=== PATIENT | male | born 1985 | race African-American/Black ===

== ENCOUNTER 2019-04-30 12:28 | Inpatient (IN) | payer OTHER ==
[~2019-04-30] VITALS: Ht 182.9 cm; Wt 60.8 kg
[2019-04-30] VITALS (11 sets, daily range): BP systolic 89–149; BP diastolic 46–92
[2019-04-30] MEDS ORDERED: BACLOFEN 10MG T10 MG PO (12:43)
[2019-04-30] MEDS ORDERED: NEURONTIN600 MG PO (12:44)
[2019-04-30] MEDS ORDERED: FERROUS SULFAT325 MG PO (12:44)
[2019-04-30] MEDS ORDERED: CENTRUM SILVER1 EAC4 PO (12:45)
[2019-04-30] MEDS ORDERED: ZOLOFT50 MG PO (12:45)
[2019-04-30] MEDS ORDERED: VITAMINC500 PO (12:46)
[2019-04-30] MEDS ORDERED: NORCO 5-325 TA1 EAC1 PO (12:47)
[2019-04-30 12:49] LABS: AMP/METHAMP Negative (Negative); BARBITURATES Negative (Negative); BENZODIAZEPINES Negative (Negative); COCAINE POSITIVE (Negative); METHADONE Negative (Negative); OPIATES POSITIVE (Negative); PCP POSITIVE (Negative)
[2019-04-30 13:04] LABS: HEMATOCRIT 39.3 % (42.0-52.0); HEMOGLOBIN 12.8 gm/dL (14.0-18.0); MCH 27.1 pg (26.0-34.0); MCHC 32.7 g/dL (28.0-37.0); MCV 83.1 fL (80.0-100.0); PLATELET COUNT 553 thou/uL (150-400); RBC 4.73 mil/uL (4.50-6.00); RDW 15.5 % (10.5-14.5); WBC 20.6 thou/uL (4.0-11.0)
[2019-04-30 13:09] LABS: ANION GAP 10 mmol/L (7-16); BUN 16 mg/dL (7-18); CALCIUM 9.2 mg/dL (8.5-10.1); CHLORIDE 104 mmol/L (98-107); CO2 27 mmol/L (21-32); CREATININE 1.4 mg/dL (0.7-1.3); GLUCOSE 126 mg/dL (74-106); SODIUM 141 mmol/L (136-145)
[2019-04-30 13:14] LABS: ALBUMIN 1.7 g/dL (3.4-5.0); DIRECT BILIRUBIN < 0.1 mg/dL (<0.1-0.3); SGOT 23 U/L (15-37); SGPT 14 U/L (30-65); TOTAL BILIRUBIN 0.2 mg/dL (<0.1-1.0); TOTAL PROTEIN 6.9 g/dL (6.4-8.2)
[2019-04-30 13:21] LABS: ABSOLUTE NEUTROPHILS 16.3 thou/uL (1.4-8.2); PLATELET ESTIMATE INCREASED
[2019-04-30 13:35] LABS: URINE BILIRUBIN NEGATIVE (Negative); URINE BLOOD NEGATIVE (Negative); URINE CLARITY SL CLOUDY; URINE COLOR YELLOW; URINE GLUCOSE-RANDOM* NEGATIVE (Negative); URINE KETONES NEGATIVE (Negative); URINE LEUKOCYTES-REFLEX NEGATIVE (Negative); URINE NITRITE-REFLEX NEGATIVE (Negative); URINE PROTEIN (DIPSTICK) 3+ (Negative); URINE UROBILINOGEN 0.2 E.U./dl (0.2-1.0)
[2019-04-30 13:53] LABS: AMORPHOUS URATES Many /LPF (None Seen); BACTERIA-REFLEX 1-9 Few /HPF (None Seen); CASTS None Seen /LPF (None Seen); SQUAMOUS 0-3 Few /LPF (0-3); URINE RBC 0-2 Rare /HPF (0-2); URINE WBC-REFLEX 0-5 Rare /HPF (0-5)
[2019-04-30] MEDS ORDERED: SEROQUEL 50 MG50 M2 PO (18:44)
[2019-04-30] MEDS ORDERED: COLACE100 MG PO (18:46)
[2019-04-30] MEDS ORDERED: PAIN & FEVER500 MG PO (18:46)
[2019-05-01] VITALS (16 sets, daily range): BP systolic 88–148; BP diastolic 50–100
[2019-05-01 10:13] LABS: ABSOLUTE NEUTROPHILS 6.7 thou/uL (1.4-8.2); BASOPHILS 3.1 % (0.0-2.0); EOSINOPHILS 4.1 % (0.0-3.0); HEMATOCRIT 39.3 % (42.0-52.0); HEMOGLOBIN 12.3 gm/dL (14.0-18.0); LYMPHOCYTES 25.8 % (24.0-44.0); MCH 26.5 pg (26.0-34.0); MCHC 31.4 g/dL (28.0-37.0); MCV 84.4 fL (80.0-100.0); PLATELET COUNT 513 thou/uL (150-400); RBC 4.65 mil/uL (4.50-6.00); RDW 15.8 % (10.5-14.5); WBC 11.5 thou/uL (4.0-11.0)
[2019-05-01 10:17] LABS: CALCIUM 8.5 mg/dL (8.5-10.1); POTASSIUM 3.8 mmol/L (3.5-5.1)
== END 2019-05-01 16:00 | DRG 917 ==
LOC: ER 12:28 → EROBS 15:00 → ICU 15:44
PROVIDERS: Emergency Medicine; Hospitalist; ADMIT Internal Medicine
DX: T40.5X1A Poisoning by cocaine, accidental (unintentional), initial encounter (principal); G92 Toxic encephalopathy; E43 Unspecified severe protein-calorie malnutrition; G82.20 Paraplegia, unspecified; Z68.1 Body mass index [BMI] 19.9 or less, adult; N18.9 Chronic kidney disease, unspecified; D72.829 Elevated white blood cell count, unspecified; L89.159 Pressure ulcer of sacral region, unspecified stage; T40.7X1A Poisoning by cannabis (derivatives), accidental (unintentional), initial encounter; Z88.6 Allergy status to analgesic agent; Z91.013 Allergy to seafood; Z91.19 Patient's noncompliance with other medical treatment and regimen; Y92.89 Other specified places as the place of occurrence of the external cause
CPT/HCPCS: 10078

== ENCOUNTER 2019-12-02 20:45 | Inpatient (IN) | payer OTHER ==
[~2019-12-02] VITALS: Ht 180.3 cm; Wt 68.0 kg
[~2019-12-02 20:45] MED LIST: BACLOFEN 10MG T10 MG PO; CENTRUM SILVER1 EAC4 PO; COLACE100 MG PO; FERROUS SULFAT325 MG PO; NEURONTIN600 MG PO; NORCO 5-325 TA1 EAC1 PO; PAIN & FEVER500 MG PO; SEROQUEL 50 MG50 M2 PO; VITAMINC500 PO; ZOLOFT50 MG PO
[2019-12-02 20:46] VITALS: BP 125/80
[2019-12-02 21:50] LABS: HEMATOCRIT 36.6 % (42.0-52.0); HEMOGLOBIN 11.5 gm/dL (14.0-18.0); MCH 26.4 pg (26.0-34.0); MCHC 31.5 g/dL (28.0-37.0); MCV 83.7 fL (80.0-100.0); PLATELET COUNT 676 thou/uL (150-400); RBC 4.38 mil/uL (4.50-6.00); RDW 16.7 % (10.5-14.5); WBC 28.7 thou/uL (4.0-11.0)
[2019-12-02 22:04] LABS: ALBUMIN 1.3 g/dL (3.4-5.0); ANION GAP 15 mmol/L (7-16); BUN 25 mg/dL (7-18); CALCIUM 8.5 mg/dL (8.5-10.1); CHLORIDE 99 mmol/L (98-107); CO2 20 mmol/L (21-32); CREATININE 1.3 mg/dL (0.7-1.3); DIRECT BILIRUBIN < 0.1 mg/dL (<0.1-0.2); GLUCOSE 99 mg/dL (74-106); POTASSIUM 4.1 mmol/L (3.5-5.1); SGOT 32 U/L (15-37); SGPT 22 U/L (30-65); SODIUM 134 mmol/L (136-145); TOTAL BILIRUBIN 0.3 mg/dL (<0.1-1.0); TOTAL PROTEIN 7.3 g/dL (6.4-8.2)
[2019-12-02 22:41] LABS: URINE BILIRUBIN NEGATIVE (Negative); URINE BLOOD 2+ (Negative); URINE CLARITY CLEAR; URINE COLOR YELLOW; URINE GLUCOSE-RANDOM* NEGATIVE (Negative); URINE KETONES NEGATIVE (Negative); URINE LEUKOCYTES-REFLEX NEGATIVE (Negative); URINE NITRITE-REFLEX NEGATIVE (Negative); URINE PROTEIN (DIPSTICK) 3+ (Negative)
[2019-12-02 22:51] LABS: ABSOLUTE NEUTROPHILS 23.5 thou/uL (1.4-8.2); ANISOCYTOSIS 1+
[2019-12-02 23:01] LABS: SQUAMOUS 0-3 Few /LPF (0-3)
[2019-12-02 23:03] LABS: BACTERIA-REFLEX None Seen /HPF (None Seen); CASTS None Seen /LPF (None Seen); CRYSTALS None Seen /LPF (None Seen); MUCUS 0-3 Light strn/LPF (None Seen); URINE RBC None Seen /HPF (0-2); URINE WBC-REFLEX None Seen /HPF (0-5)
[2019-12-03 01:16] VITALS: BP 119/63
[2019-12-03 01:29] LABS: AMP/METHAMP Negative (Negative); BARBITURATES Negative (Negative); BENZODIAZEPINES Negative (Negative); COCAINE POSITIVE (Negative); METHADONE Negative (Negative); OPIATES Negative (Negative); PCP POSITIVE (Negative)
--- NOTE | 2019-12-03 01:30 | NUR ---
Pt. was admitted to the unit from the emergency room accompanied by staff. He is alert and oriented. Pt. able to transfer himself safely from the wheelchair to the toilet and bed.
[2019-12-03 01:50] VITALS: BP 114/64
--- NOTE | 2019-12-03 02:48 | NUR ---
Pt. admission assessment and history is completed.
--- NOTE | 2019-12-03 06:30 | NUR ---
Pt. c/o severe pain in his right hip and po hydrocodone not holding the pt. pain. Ccalled and spoke to Gabriela SAMANO and she is aware. To put in some orders for additional pain med. (see orders).
[2019-12-03 07:33] VITALS: BP 139/75
[2019-12-03 12:20] VITALS: BP 142/95
[2019-12-03 19:57] VITALS: BP 147/86
--- NOTE | 2019-12-03 20:18 | NUR ---
PT A&OX4, VSS, PAIN IN LOWER EXTREMITIES. PAIN MEDICATION GIVEN. WOUND CARE DONE PER ORDERS. NO SIGNS OF DISTRESS. WILL CONTINUE TO MONITOR.
--- NOTE | 2019-12-04 06:00 | NUR ---
Assumed pt care @191. pt a&ox4. ind in room with a wheelchair. CT of pelivs was done last night. pt c/o of constant pain in his hip that is partially relieved with current pain regiments but complains that his morphine is too stretched out at Q6hr. contact prec for mrsa maintained. dressings to wounds clean, dry and intact. no s/s of acute distress. report off to day shift nurse
[2019-12-04 08:32] VITALS: BP 134/98
[2019-12-04 08:53] LABS: ABSOLUTE NEUTROPHILS 11.1 thou/uL (1.4-8.2); BASOPHILS 1.4 % (0.0-2.0); EOSINOPHILS 3.4 % (0.0-3.0); HEMATOCRIT 31.3 % (42.0-52.0); HEMOGLOBIN 9.6 gm/dL (14.0-18.0); LYMPHOCYTES 20.9 % (24.0-44.0); MCH 25.8 pg (26.0-34.0); MCHC 30.7 g/dL (28.0-37.0); MCV 84.2 fL (80.0-100.0); MONOCYTES 8.4 % (1.0-8.0); POLYS 65.9 % (36.0-66.0); RBC 3.71 mil/uL (4.50-6.00); RDW 16.6 % (10.5-14.5); WBC 16.8 thou/uL (4.0-11.0)
[2019-12-04 08:56] LABS: CALCIUM 7.7 mg/dL (8.5-10.1); CREATININE 1.3 mg/dL (0.7-1.3); MAGNESIUM 2.3 mg/dL (1.8-2.4); POTASSIUM 3.8 mmol/L (3.5-5.1)
[2019-12-04 08:59] LABS: PLATELET COUNT 591 thou/uL (150-400)
--- NOTE | 2019-12-04 09:35 | NUR ---
PT ADMITTED RELATED TO WOUNDS. CM MET WITH PT YESTERDAY. PT INDICATED HE HAD BEEN LIVING IN AN APARTMENT WITH HIS MOTHER AND STEP DAD. PT HAD BEEN HERE AND HAD TOE AMPUTATIONS AND LEFT AMA. PT HAS A WHEELCHAIR FOR HOME USE. PT'S MEDICAID IS NOW ACTIVE. CM SPOKE WITH PT ABOUT ACUTE REHAB OR LTC PLACEMENT OPTIONS UPON DC. CM TO FOLLOW INDICATED.
--- NOTE | 2019-12-04 11:43 | NUR ---
Received awake on bed. Due medications given as prescribed. On room air. Vital signs stable. A+Ox4. On regular diet- tolerating well; no nausea, no vomiting and no abdominal pain noted. With L BKA- stump dressing in place. With leg dressings in place as well. With SL at L hand- intact, flushing well; on IV antibiotics. Maintained on isolation due to MRSA of wound. Assisted in ADLs. Wheelchair bound, helped in transfer. Complained of pain, due PRN pain medications given as prescribed- explained to patient re: time of pain medications and frequency to be given; pt asked if frequency of IV pain meds can be increased- Dr Kerns informed and said to remain current regimen.
[2019-12-04 14:30] VITALS: BP 140/88
--- NOTE | 2019-12-04 19:36 | HC ---
[facility] [address] [place] [address] CONSULTATION Name: ESME DE Room #: 455- ADM IN M.R.#: [id number] Admission: 12/03/19 Attend Phys: Esteban Kerns MD Discharge: Date of : 83 Report #: [id number] THIS REPORT FOR: cc: SHELLY - No family physician/PCP SHELLY - No family physician/PCP Junior Horne MD ~ CC: Esteban BRAVO physician/PCP DATE OF SERVICE: 12/03/2019 INFECTIOUS DISEASE CONSULTATION REASON FOR CONSULTATION: I was asked to evaluate concerning fever, leukocytosis gangrene of his right foot and chronic wounds to his pelvis. HISTORY OF PRESENT ILLNESS: A 34-year-old paraplegic gentleman with polysubstance abuse, who was recently hospitalized and underwent amputation of the first and second toes of his right foot. He has had a previous left BKA. Also, has pressure wounds to both ischium. He left A last week due to compliance issues and not staying in the hospital facility. He returned home and was later kicked out of his mother's house. He has been unable to take care of himself. Presents now for further evaluation. He has had fever and chills. He has had some drainage from his wounds. Denies any nausea, vomiting or diarrhea. There has been no cough or sputum production. ALLERGIES: HYDROMORPHONE, SEAFOOD and SHRIMP. MEDICATIONS: As noted on his MAR, which were reviewed. He left without antibiotics the last time. PAST MEDICAL HISTORY: Polysubstance abuse, paraplegic, coccyx wounds and ischial wounds, left BKA. FAMILY HISTORY: Noncontributory. SOCIAL HISTORY: Does multiple drugs, smokes cigarettes, alcohol use. REVIEW OF SYSTEMS: A 10-point review was negative other than what is described above. PHYSICAL EXAMINATION: VITAL SIGNS: Temperature is 101.3, max today, now afebrile and hemodynamically stable. GENERAL: He was alert and cooperative. EYES: Without scleral icterus. [facility] [address] [place] [address] CONSULTATION Name: ESME DE Room #: [facility] ADM IN M.R.#: [id number] Admission: 12/03/19 Attend Phys: Esteban Kerns MD Discharge: Date of : 83 Report #: [id number] MOUTH: Without mucositis. NECK: Supple. LUNGS: Clear. HEART: Regular, without murmur. ABDOMEN: Soft. EXTREMITIES: Wounds to both ischium with exposed bone evident on the right. Left BKA stump with an unstageable ulceration distally with surrounding erythema. Right foot with gangrene changes distally. There was bullous formation to the dorsum of his foot. There was erythema extending up to his ankle and distal lower leg. There was bloody drainage along the incision line. There was discoloration with erythema and some more purple discoloration to the plantar aspect of his distal foot. Pulses were palpable in the groin. LABORATORY STUDIES: Reviewed. Cultures reviewed. IMPRESSION: A 34-year-old paraplegic with polysubstance abuse. Has sepsis with leukocytosis and gangrene to his right foot. Also, has extensive wounds to both ischium. RECOMMENDATIONS: We will obtain cultures of the wounds. Continue with broad antibiotic coverage. Surgical evaluation for I suspect will need below-knee amputation. Also, check arterial studies. <ELECTRONICALLY SIGNED> By: Junior Horne MD 12/04/19 [id number] Junior Horne MD /nt
[2019-12-04 19:45] VITALS: BP 151/86
--- NOTE | 2019-12-05 02:47 | NUR ---
PT CARE ASSUMED WITH PT IN BED AT 1900.PT IS A/O X4.PT IS ON ROOM AIR.PT AGITATED WHNE IN PAIN.PT C/O OF PAIN AND PAIN MANAGED WITH MORPHINE AND HYDROCODONE.IV ACCESS ON RT SHOULDER.PT HAS LEFT BKA AND PT IS ABLE TO TRANSFER SELF AND DO ADL .WILL CONTINUE TO MONITOR PER POC
[2019-12-05 08:28] VITALS: BP 133/93
--- NOTE | 2019-12-05 10:20 | NUR ---
Received awake on bed. Due medications given as prescribed. On room air. Vital signs stable. A+Ox4. On regular diet- tolerating well; no nausea, no vomiting and no abdominal pain noted. With L BKA- dressing intact; leg dressings intact. With SL at L hand- intact, on IV antibiotics. Maintained on isolation due to MRSA. Complained of pain, due medications given as prescribed. Wheelchair bound, able to transfer from bed to wheelchair, going to the toilet via wheelchair, standby assist. To continue monitoring patient.
[2019-12-05 12:53] LABS: ABSOLUTE NEUTROPHILS 11.5 thou/uL (1.4-8.2); BASOPHILS 0.2 % (0.0-2.0); EOSINOPHILS 4.4 % (0.0-3.0); HEMATOCRIT 32.9 % (42.0-52.0); HEMOGLOBIN 10.2 gm/dL (14.0-18.0); LYMPHOCYTES 17.9 % (24.0-44.0); MCH 26.1 pg (26.0-34.0); MCHC 31.1 g/dL (28.0-37.0); MONOCYTES 8.7 % (1.0-8.0); PLATELET COUNT 653 thou/uL (150-400); POLYS 68.8 % (36.0-66.0); RBC 3.92 mil/uL (4.50-6.00); RDW 16.8 % (10.5-14.5); WBC 16.8 thou/uL (4.0-11.0)
[2019-12-05 13:07] LABS: ALBUMIN 1.3 g/dL (3.4-5.0); CREATININE 1.2 mg/dL (0.7-1.3); POTASSIUM 3.9 mmol/L (3.5-5.1); TOTAL BILIRUBIN 0.1 mg/dL (<0.1-1.0); TOTAL PROTEIN 6.8 g/dL (6.4-8.2)
[2019-12-05 14:05] VITALS: BP 138/99
[2019-12-05 19:33] VITALS: BP 170/99
[2019-12-06 06:07] LABS: ABSOLUTE NEUTROPHILS 8.8 thou/uL (1.4-8.2); BASOPHILS 0.4 % (0.0-2.0); EOSINOPHILS 6.3 % (0.0-3.0); HEMATOCRIT 31.1 % (42.0-52.0); HEMOGLOBIN 9.7 gm/dL (14.0-18.0); LYMPHOCYTES 20.2 % (24.0-44.0); MCH 26.2 pg (26.0-34.0); MCHC 31.1 g/dL (28.0-37.0); MCV 84.3 fL (80.0-100.0); MONOCYTES 9.9 % (1.0-8.0); PLATELET COUNT 628 thou/uL (150-400); POLYS 63.2 % (36.0-66.0); RBC 3.69 mil/uL (4.50-6.00); RDW 16.3 % (10.5-14.5); WBC 13.9 thou/uL (4.0-11.0)
[2019-12-06 06:50] LABS: CALCIUM 8.3 mg/dL (8.5-10.1); MAGNESIUM 2.2 mg/dL (1.8-2.4); PHOSPHORUS 3.7 mg/dL (2.5-4.9); POTASSIUM 4.2 mmol/L (3.5-5.1)
--- NOTE | 2019-12-06 08:33 | NUR ---
progress pt a/o x4 rating pain a 7 to 9 taking morphine and hydrocodone in moderation dressings intact antibiotics administered as ordered pt pleasant and cooperative.
[2019-12-06 09:28] VITALS: BP 137/89
[2019-12-06 16:38] VITALS: BP 135/87
--- NOTE | 2019-12-06 17:29 | NUR ---
A/O, cooperative; complains of pain in wounds, pain medication given and worked; dressing changed; vss, afebrile. lab reviewed. Patient lying in bed, watching TV. will keep monitoring.
[2019-12-06 19:34] VITALS: BP 129/92
[2019-12-07 05:15] VITALS: BP 128/76
[2019-12-07 08:00] VITALS: BP 153/89
[2019-12-07 15:00] VITALS: BP 132/84
--- NOTE | 2019-12-07 16:49 | NUR ---
PT CURRENTLY ON IV ABX AND GETTING WOUND CARE. PT REFUSED PT AND OT DALLIN INDICATED HE IS INDEPENDENT. CM HAD SPOKEN TO PT ABOUT LTAC OR LTC UPON DC. BUT PT MAY NOT QUALIFY. CM TO FOLLOW UP WITH PT AND DETEREMINE ID HE INTENDS TO DC BACK HOME WITH FAMILY OR IS INTERESTED IN ANOTHER LEVEL OF CARE.
[2019-12-07 19:17] VITALS: BP 129/84
--- NOTE | 2019-12-07 19:38 | NUR ---
Assumed pt care this am, wants pain medication on the dot pain level would be in the high range. Wound care and dressing done by the wound care team, nurse and pt himself.Pt is independent when moving from bed to his wheelchair, to the toilet and back. Pt is able to void on his own bladder scan post void was only 86. POC followed, no signs or verbalizatiosn of distress noted. Pt constantly demands attention and would want nurse to spend time talking to him. Explained the situation that he is not the only pt and as much time that can be given to him will be done. Endorsed to the night nurse.
--- NOTE | 2019-12-08 02:31 | NUR ---
ASSUMED CARE OF PT AT 1900HRS. PT IS AOX4 AND LETS NEEDS BE KNOWN. PT IS INDEPENDENT. ABX TREATMENT CONTINUED. PT REPORTED SOME PAIN AND WAS TREATED WITH PRN PAIN MEDS. WOUND DRESSING CHANGED. PT WAS ABLE TO GET COMFORTABLE AND SLEEP PART OF THE SHIFT. VSS AND NO S/S OF ACUTE DISTRESS. WILL CONTINUE TO MONITOR.
[2019-12-08 08:29] VITALS: BP 147/85
--- NOTE | 2019-12-08 10:52 | NUR ---
Received awake on bed. Due medications given as prescribed. On room air. Vital signs stable. On regular diet- tolerating well; no nausea, no vomiting and no abdominal pain noted. Able to transfer himself from bed to wheelchair, able to use the toilet- falls bundle in place.With L upper arm SL- intact; on IV antibiotics. With L BKA, with wound on R foot- dressing in place, with wound on R hip- dressing in place; with packing on his buttocks- in place. Pt complained of pain, due PRN pain medication given as prescribed- pt got very upset that pain medication not given on the dot- explain to be pt that everyone is a priority and we are trying our best to see everyone on time; pt was talking to his friend and complaining high level of pain- no visual signs of pain noted on the patient during that time. With friend at bedside. Pt requested to talk to pt advocate- Katarzyna informed, pt informed that phone call was made as well.
--- NOTE | 2019-12-08 15:37 | NUR ---
CM FOLLOWED UP WITH PT THIS AFTERNOON. PT STILL GETTING IV ABX AND WOUND CARE. CM SPOKE WITH PT ABOUT LTAC AT [facility] OF LTC AT A FACILITY UPON DC. PT WAS NONCOMMITTAL. CM FAXED REFERRAL TO [facility] FOR REVIEW. CM TO FOLLOW INIDCATED WITH DC PLANNING.
--- NOTE | 2019-12-08 16:52 | NUR ---
[facility] CAN'T ACCEPT PT THEY DON'T TAKE [place] MEDICAID. CM BROUGHT PT AT [facility] THERE WEREN'T ANY APPROPRIATLY SIZED PANTS FOR CM TO PROVIDE FOR PT. CM TO FOLLOW INDICATED WITH DC PLANNING.
[2019-12-08 19:43] VITALS: BP 145/99
--- NOTE | 2019-12-09 01:40 | NUR ---
PT CARE ASSUMED WITH PT WATCHING TV .PT IS A/O X4.PT APPEAR TO BE A A GOOD MOOD.PT COOPERATIVE WITH NURSE .PT C/O OF PAIN AND PAIN MANAGED WITH MORPHINE.PT CAN TRANSFER SEF TO WHEELCAHIR AND USES RESTROOM INDEPENDENTLY.PT DENIED N/V.PT PAIN CONSTANT AT A LEVEL OF 8.WILL CONTINUE TO MONITOR PER POC
[2019-12-09 07:35] VITALS: BP 153/85
--- NOTE | 2019-12-09 16:09 | NUR ---
Assumed pt care at 7am.Pt in bed very angry related to care given last noc. Pt has numerous c/o since admossion regarding his care.Service recovery provided.Assessment completed.vss.Pt c/o rt hip and back pain rated 7/10. Pain med given as ordered with relief.Dr Lambert here,order noted.Drsg change done to coccyx and rt foot as ordered.Pt up in wc to bathroom independently. Will continue to monitor.
[2019-12-09 20:28] VITALS: BP 136/97
[2019-12-10 08:00] VITALS: BP 136/92
--- NOTE | 2019-12-10 08:13 | NUR ---
progress pt reports increased pain to right hip right leg has 2 plus edema from thigh to ankle dressing to right foot and left stump replaced francisco wrapped a little too tight pt leg appeared less swollen at the ankle after redressed. pain controlled with iv morphine and hydrocodone. tolerating diet adequate intake continue poc.
--- NOTE | 2019-12-10 14:44 | NUR ---
Patient on list with [facility] of not acceptance.
[2019-12-10 15:00] VITALS: BP 140/80
[2019-12-10 20:23] VITALS: BP 146/90
--- NOTE | 2019-12-10 20:43 | NUR ---
PT A&OX4, VSS, PAIN GENERALIZED. WOUND CARE TEAM COMPLETED LOWER EXTREMITY DRESSING CHANGE. PATIENT IN NO DISTRESS. WILL CONTINUE TO MONITOR.
[2019-12-11 07:30] VITALS: BP 131/94
--- NOTE | 2019-12-11 13:10 | NUR ---
progress pt a/o x4 up ad ludivina wound care to right hip and right foot and left stump completed wound beds pink/red with granulation tissue noted no odor detected dressing with just scant bloody drainage. taking morphine and hydrocodone for pain with effect. iv antibiotics continue. pt pleasant and cooperative this shift , in am pt reported a new sharp pain to inner aspect of right leg as opposed to pain he had been having at right hip wound site. Dr. Amanda notified of increased swelling and pain ordered a onetime dose of lovenox and a us doppler results to be called to when posted. continue to monitor.
[2019-12-11 14:47] VITALS: BP 140/96
[2019-12-11 15:00] VITALS: BP 130/89
--- NOTE | 2019-12-11 16:56 | NUR ---
[facility] NOT ABLE TO ACCEPT PT. CM HAD PROVIDED PT WITH LIST OF LTC FACILITIES TO REVIEW. WAITING FOR PT TO DETERMINE WHERE HE WOULD LIKE REFERRALS SENT TO REVIEW.
[2019-12-11 19:28] VITALS: BP 142/84
--- NOTE | 2019-12-11 19:57 | NUR ---
Received awake on bed. Due medications given as prescribed, able to swallow meds w/o diffculty. On room air. Vital signs stable. On regular diet tolerating well; no nausea, no vomiting and no abdominal pain noted- encouraged to take supplements. Able to have a bowel movement today. With SL at L hand- on IV pain meds and IV antibiotics. Pt's wound dressing changed as per previous shift nurse, no documentation noted. Dressing C/D/I. Assisted in ADLs, paraplegic but able to transfer from wheelchair to bed and able to use the toilet. Complained of painm due PRN pain medications given as prescribed. Still a/w discharge destination/plans/placement. With order to have Enoxaparin 60mg, as per pharmacy we do not have such dosage, Dr Amanda informed and said to modify order to 80mg, one time dose given as prescribed. With ultrasound for Lower extremities ordered- done at bedside, pt tolerated procedure well. Pt cooperative with care and pleasant today. To continue monitoring pt.
--- NOTE | 2019-12-12 03:48 | NUR ---
PT IS A/O X4.PT IS SELF TRANSFER TO W/C AND IN BATHROOM.PT C/O OF PAIN WITH LITTLE OR NO PAIN RELIEF WITH PAIN MEDICATIONS.PT WENT OUT FOR A 10MINUTES STROLL ACCOMPANIED BY TEST BAKER WITH SECURITY NOTIFIED.IV ACCESS ON LH SL AND HAS CEFTIAZONE ANTIBIOTIC.WILL CONTINUE TO MONITOR POC TILL EOS
[2019-12-12 08:45] VITALS: BP 134/97
--- NOTE | 2019-12-12 11:30 | NUR ---
Received awake on bed. Due medications given as prescribed, able to swallow meds w/o difficulty. On room air. Vital signs stable. On regular diet- tolerating well; no nausea, no vomiting and no abdominal pain, compliant with supplements. With SL at L hand- on IV antibiotics. Able to transfer self from wheelchair to bed; able to use the bathroom. Assisted in ADLs. With dressing on his L stump, R leg, left and right buttocks, sacrum and R hip- dressing C/D/I- pt helps with dressing changes. Falls bundle in place. Pt requested to go out of the unit- informed patient that we need to obtain a doctor's order for it, pt says that a male physician went to his room for 2 days already and prescribing that he can go out for fresh air, explained to patient that I have to verify it with current hospitalist prior to allowing him. Pt went out of the unit while I was giving meds to one of my patients; called security and warehouse pricing and inventory clerk re: incident. Pt brought back by security to his room. Complained of pain, due PRN pain meds given as presribed. To continue monitoring patient.
[2019-12-12 15:41] VITALS: BP 144/79
[2019-12-12 19:22] VITALS: BP 152/97
--- NOTE | 2019-12-13 03:12 | NUR ---
RECEIVED PT SCREAMING IN HIS ROOM CURSING. RECEIVED REPORT FROM DAY RN THAT PT HAS BEEN VERY BELIGERANT ALL DAY WANTING TO GO OUTSIDE. PER PT, CLEARED HIM TO GO OUTSIDE WITH A HOOKER ON IN AFTERNOON, ALTHOUGH THE DAY RN CHECKED WITH AND SHE NEVER SAID THAT TO PT. TRIED TO EXPLAIN TO PT THAT THERE IS NO PHYSICIAN ORDER FOR HIM TO LEAVE THE UNIT EVEN WITH THE HOOKER ON. APPARENTLY THIS ISSUE HAS BEEN GOING ON FOR SOMETIME. WHEN I TRIED TO SPEAK TO PT, PT STARTED SCREAMING AND CURSING AT ME SAYING THAT HE DOES NOT UNDERSTAND WHY THERE'S INCONSISTENCY ON HIM LEAVING THE UNIT. TRIED TO EXPLAIN TO PT THAT THERE'S NO PHYSICIAN NOTE OR ORDER FOR HIM TO LEAVE THE UNIT. OFFERED TO REFER PT TO PT'S ADVOCATE AND RISK MANAGEMENT, PT DECLINED.
[2019-12-13 05:18] LABS: ABSOLUTE NEUTROPHILS 10.8 thou/uL (1.4-8.2); BASOPHILS 1.4 % (0.0-2.0); EOSINOPHILS 4.9 % (0.0-3.0); HEMATOCRIT 29.7 % (42.0-52.0); HEMOGLOBIN 9.3 gm/dL (14.0-18.0); LYMPHOCYTES 22.1 % (24.0-44.0); MCH 26.3 pg (26.0-34.0); MCHC 31.4 g/dL (28.0-37.0); MCV 83.8 fL (80.0-100.0); MONOCYTES 9.6 % (1.0-8.0); PLATELET COUNT 728 thou/uL (150-400); RBC 3.55 mil/uL (4.50-6.00); RDW 15.8 % (10.5-14.5); WBC 17.4 thou/uL (4.0-11.0)
[2019-12-13 05:54] LABS: CALCIUM 8.7 mg/dL (8.5-10.1); CREATININE 1.1 mg/dL (0.7-1.3); MAGNESIUM 1.9 mg/dL (1.8-2.4); PHOSPHORUS 4.9 mg/dL (2.5-4.9); POTASSIUM 4.1 mmol/L (3.5-5.1)
[2019-12-13 15:00] VITALS: BP 144/88
[2019-12-13 19:22] VITALS: BP 137/83
--- NOTE | 2019-12-14 02:38 | NUR ---
PT CARE ASSUMED AT 1900 WITH PT IN HIS W/C WATCHING TV.PT IS A/O X4.PT IS PARAPLEGIA AND ON W/C BUT ABLE TO TRANSFER SELF INDEPENDENTLY AND DO ACTIVITY OF DAILY LIVING INDEPENDENTLY.PT WANTED TO GO OUTSIDE FOR FRESH AIR BUT STAFF UNAVAILABLE TO TAKE HIM OUT.PT PAIN MANAGEMENT WITH HYDROCODONE AND MORPHINE.WOUND DRESSINGS I/D/C.WILL CONTINUE TO MONITOR PER POC
[2019-12-14 07:40] VITALS: BP 134/88
--- NOTE | 2019-12-14 07:54 | P ---
[facility] [place] [address] [address] [address] PROCEDURE REPORT Name: ESME DE Room #: 455-P ADM IN M.R.#: [id number] Admission: 12/03/19 Attend Phys: Esteban Kerns MD Discharge: Date of : 83 Report #: [id number] THIS REPORT FOR: cc: SHELLY - Brianna family physician/PCP SHELLY - No family physician/PCP Luis Diana MD ~ CC: Esteban BRAVO physician/PCP DATE OF SERVICE: 12/10/2019 DEBRIDEMENT INDICATIONS: The patient is a 34-year-old male patient with a previous left below-knee amputation with cold injury and some necrosis to the distal portion of his BKA stump. He has developed increasing thick black eschar only partially covering the distal stump. Therefore, a full thickness surgical sharp debridement was performed to remove this eschar. PREPROCEDURE DIAGNOSIS: Cold injury with tissue necrosis to the left below-knee amputation stump. POSTPROCEDURE DIAGNOSIS: Cold injury with tissue necrosis to the left below-knee amputation stump. PROCEDURE PERFORMED: Sharp full-thickness excisional surgical debridement of left below-knee amputation stump. DESCRIPTION OF PROCEDURE: After obtaining verbal consent from the patient, a time-out was taken. Proper patient, site, side, and procedure were verified. The area was then prepped and draped in the usual sterile fashion. No anesthesia was required. The patient has paraplegia and minimal sensation. A #10 bladed scalpel and tissue forceps were utilized to excise skin, eschar, necrotic and subcutaneous tissue down to a clean bleeding base. ESTIMATED BLOOD LOSS: 3 mL. PAIN: 0 on a scale of 1-10 during and after the procedure. MEASUREMENTS: Preprocedure measurements were 5.2 x 3.4 x 0.1 cm. Postprocedure measurements were 6.5 x 4.4 x 0.3 cm. [facility] [address] [place] [address] PROCEDURE REPORT Name: ESME DE Room #: 455-P [facility] IN .R.#: [id number] Admission: 12/03/19 Attend Phys: Esteban Kerns MD Discharge: Date of : 83 Report #: [id number] The patient tolerated the procedure well. <ELECTRONICALLY SIGNED> By: Luis Diana MD 12/14/19 [id number] Luis Diana MD /nt
--- NOTE | 2019-12-14 13:42 | NUR ---
Nutrition followup: treatment continues to pt with multiple stage IV wounds, hx paraplegia. Eating 80-100% all meals consistently and will drink at least 1 oral supplement per day. No new wt. Discharge planning continues for placement. change nutrition risk to low risk.
--- NOTE | 2019-12-14 16:50 | NUR ---
CM SPOKE WITH PT ABOUT ACUTE REHAB REFERRALS TO BE SENT TO [facility] FOR [facility]VIEW. CM TO FOLLOW INIDCATED WITH DC PLANNING.
--- NOTE | 2019-12-14 17:06 | NUR ---
DISCHARGE PLANNING. PATIENT REFERRALS FAXED TO [facility]. AWAITING RESPONSE.
[2019-12-14 20:08] VITALS: BP 134/92
--- NOTE | 2019-12-14 20:57 | NUR ---
PATIENT UP AD ALKA TO WHEELCHAIR. PAIN MEDS ADMINISTERED, PATIENT REPORTS MINIMAL RELIEF. PROVIDER NOTIFIED, NEW ORDERS RECEIVED. MEDICATION ADMINISTERED TO PATIENT, PATIENT REPORTS MORE RELIEF FROM PAIN. PATIENT BECAME HOSTILE WITH STAFF, YELLING AND CUSSING WHEN PAIN MEDICATION WAS BEHIND, SECURITY AND [employer] BUSINESS ANALYST CALLED. PATIENT WAS ABLE TO CALM DOWN IN ROOM, ABLE TO ADMINISTER MEDICATION. PATIENT WAS ABLE TO REST IN ROOM, REPORTED RELIEF FROM PAIN ON REASSESSMENT.
--- NOTE | 2019-12-15 02:01 | NUR ---
PT CARE ASSUMED WITH PT SITTING AT THE NURSING STATION CONVERSING WITH STAFFS.PT WAS PLEASANT.PT IS A/O X4 .PT IS W/C BOUND AND DO TRANSFER ALONE.PT IS AWAITING PLACEMENT.PT PAIN MANAGEMENT WITH HYDROCODONE AND MORPHINE.PT HAVE ATIVAN PRN FOR ANXIETY.WILL CONTINUE TO MONITOR TILL END OF SHIFT
[2019-12-15 07:00] VITALS: BP 148/92
[2019-12-15 07:33] LABS: ABSOLUTE NEUTROPHILS 10.1 thou/uL (1.4-8.2); BASOPHILS 1.3 % (0.0-2.0); EOSINOPHILS 5.1 % (0.0-3.0); HEMATOCRIT 30.4 % (42.0-52.0); HEMOGLOBIN 9.6 gm/dL (14.0-18.0); LYMPHOCYTES 21.5 % (24.0-44.0); MCH 26.4 pg (26.0-34.0); MCHC 31.7 g/dL (28.0-37.0); MCV 83.5 fL (80.0-100.0); MONOCYTES 8.9 % (1.0-8.0); PLATELET COUNT 677 thou/uL (150-400); POLYS 63.2 % (36.0-66.0); RBC 3.64 mil/uL (4.50-6.00); RDW 16.4 % (10.5-14.5); WBC 16.1 thou/uL (4.0-11.0)
[2019-12-15 07:50] LABS: ALBUMIN 1.6 g/dL (3.4-5.0); ANION GAP 8 mmol/L (7-16); BUN 15 mg/dL (7-18); CALCIUM 8.8 mg/dL (8.5-10.1); CHLORIDE 102 mmol/L (98-107); CO2 27 mmol/L (21-32); GLUCOSE 116 mg/dL (74-106); SGOT 34 U/L (15-37); SGPT 23 U/L (30-65); SODIUM 137 mmol/L (136-145); TOTAL BILIRUBIN < 0.1 mg/dL (<0.1-1.0); TOTAL PROTEIN 7.2 g/dL (6.4-8.2)
[2019-12-15] MEDS ORDERED: LORAZEPAM 1 MG T1 MG PO (11:59)
[2019-12-15] MEDS ORDERED: NORCO 10-325 T1 EACH PO (11:59)
[2019-12-15] MEDS ORDERED: AUGMENTIN 875-1 EACH PO (12:56)
[2019-12-15 14:35] VITALS: BP 148/92
[2019-12-15 14:40] VITALS: BP 148/92
[2019-12-15 14:58] VITALS: BP 148/92
--- NOTE | 2019-12-15 16:40 | NUR ---
[facility] BOTH DENIED ADMISSION. CARE TEAM INDICATED THAT PT WOULD BE CHANGED TO PO ABX AND WOULD BE DISCHARGED HOME WITH OUTPATIENT WOUND CARE. PT WAS NOTIFIED BY CARE TEAM. PT WAS PROVIDED INFO TO FOLLOW UP WITH [facility] SAT AND/OR SATURDAY MORNINGS. WAS GIVEN ADDRESS AND PHONE NUMBER. PT WAS PROVIDED [facility] PACKET FOR FOLLOW UP CARES UPON DC. PT TO DISCHARGE HOME WITH IS MOTHER AND STEP FATHER. PT'S FAMILY TO PROVIDE TRANSPORT HOME THIS DAY. NO OTHER CM INTERVENTION INDICATED. CASE CLOSED.
--- NOTE | 2019-12-15 18:24 | NUR ---
Asked to meet with patient and did speak with patient sister and grandmother in patients room over the phone. Patient agreed to go to LTC and referrals will be sent in am of 12-16-2019. LTAC referrals had been sent and none were able to take patient at this time. Spoke with patient for over an hour, patient expressed frustrations of current condition and on-going care needs. Notified MD that patient will stay as LTC placement can be secured. Patient verbalized an understanding of above and thanked me for "listening" and my time. Will continue with POC to move LTC.
[2019-12-15 19:53] VITALS: BP 134/85
--- NOTE | 2019-12-15 19:57 | NUR ---
PATIENT ALERT AND ORIENTED AND INVOLVED IN HIS OWN CARE INCLUDING ASSISTING WITH COMPLETING AND DIRECTING HIS DRESSING CHANGES. PATIENT EXPRESS AT LENGTH TO MULTIPLE STAFF HIS DIS-SATISFACTION WITH HIS CARE. ATTEMPT TO ADDRESS HIS CONCERNS BY INVOLVING PRIMARY MD AND CASE MANAGEMENT. PATIENT CONCERNS ARE PRIMARILY WITH PAIN MANAGMENT AND HIS PERCEPTION OF LACK OF CONCERN FROM SOME STAFF MEMBERS. PATIENT WAS DISCHARGED ORDER WAS PLACED BUT DID NOT LEAVE DUE TO NO RIDE HOME. PATIENT AND FAMILY MEMBERS INDICATED THEY WANTED PATIENT TO CONTINUE TO GET CARE AT ANOTHER EXTENDED CARE FACILITY. DIR. CASE MANAGEMENT SPOKE AT LENGTH WITH PATIENT AND ATTEMPT TO PLACE PATIENT AT [facility] [address] IN [place]. PATIENT WAS TOLD HE NEEDS TO STAY ON THE NURSING UNIT AND NOT LEAVE THE BUILDING. PATIENT'S BROTHER WAS IN PATIENT'S ROOM FOR SEVERAL HOURS DURING THE MIDDLE OF THE DAY. THIS PATIENT IS WELL KNOWN TO THE STAFF, SECURITY AND ADMINISTRATION FOR HAVING DISAGREEMENTS WITH STAFF, USING FOUL LANGUAGE.
--- NOTE | 2019-12-16 07:23 | NUR ---
PROGRESS PT A/O X4 UP AD ALKA TRANSFERS TO CHAIR INDEPENDENTLY. STILL RATING PAIN TO RIGHT HIP AN 8 TO 10 TAKING HYDROCODONE AND OXYCODONE IR. WAS SUPPOSED TO BE DISCHARGED BUT NO WHERE TO GO. CASE MANAGEMENT TO ARRANGE FOR SNF TODAY.
[2019-12-16 08:35] VITALS: BP 184/94
--- NOTE | 2019-12-16 11:46 | NUR ---
PT ALERT AND ORIENTED TIMES FOUR WITH SOMEWHAT BLUNTED AFFECT THIS MORNING. BP ELEVATED AWARE. OTHER VSS. PT C/O PAIN PRN MEDICATIONS GIVEN WITH SOME RELEIF. DRESSINGS CHANGED THIS MORNING. PT TOLERATES MEDS AND MEALS. PT UP TO WC ON HIS OWN. PT FRIEND AT BEDSIDE. WILL CONTINUE TO MONITOR.
--- NOTE | 2019-12-16 12:49 | NUR ---
Had on-site liaison from [facility] here and we met with patient. [facility] was looking to take the patient and discussed with physician's and SW. [place]fill at 11:15 today that patient refused to provide his Medicaid check to pay for his stay and therefore he told the attending and nurse he was leaving. Went to speak with patient with Risk Management with intention to discuss and notify family and patient has left the hospital and has been discharged. Notified SW on case.
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
--- NOTE | 2019-12-18 16:55 | P ---
[facility] [place] [address] [address] [place] [address] PROCEDURE REPORT Name: ESME DE Room #: 455-P [facility] IN M.R.#: [id number] Admission: 12/03/19 Attend Phys: Esteban Kerns MD Discharge: 12/16/19 Date of : 83 Report #: [id number] THIS REPORT FOR: cc: SHELLY - No family physician/PCP SHELLY - No family physician/PCP Reid Hidalgo MD ~ CC: Esteban BRAVO physician/PCP DATE OF SERVICE: 12/04/2019 WOUND CARE PROCEDURE NOTE PERSONAL PHYSICIAN: Dr. Kerns. CHIEF COMPLAINT: Right hip wound with abscess. HISTORY OF PRESENT ILLNESS: This is a 34-year-old black male we have been following for multiple decubitus ulcers, which are chronic; however, in the past week, the patient noticed he had increased pain and what appeared to be a new decubitus ulcer over his right lateral hip. CT scan confirmed inflammatory process, which required incision and drainage. PREPROCEDURE DIAGNOSES: 1. Infected right hip decubitus ulcer. 2. Paraplegia. 3. Protein-calorie malnutrition -- severe. POSTPROCEDURE DIAGNOSES: 1. Infected right hip decubitus ulcer. 2. Paraplegia. 3. Protein-calorie malnutrition -- severe. DESCRIPTION OF PROCEDURE: After timeout was taken, verbal consent was obtained. The patient had excisional debridement down to and including subcutaneous tissue with removal of viable and nonviable tissue. A scalpel and forceps were used for the debridement. The patient was anesthetized with 1% lidocaine with epinephrine prior to the debridement. Bleeding was minimal, easily controlled with pressure. Post-debridement measurements were 2 x 3 x 2 cm. The patient tolerated the procedure well. After the debridement, the patient had Dakin's moist gauze packed within the ulceration. Deep wound culture was obtained prior [facility] [address] [place] [address] PROCEDURE REPORT Name: ESME DE Room #: 455-P [facility] IN ..#: [id number] Admission: 12/03/19 Attend Phys: Esteban Kerns MD Discharge: 12/16/19 Date of : 83 Report #: [id number] to placement of the Dakin solution. Total excisional debridement of subcutaneous tissue was less than 20 square cm. <ELECTRONICALLY SIGNED> By: Reid Hidalgo MD 12/18/19 1655 [id number] Reid Hidalgo MD /nt
--- NOTE | 2019-12-24 14:29 | HC ---
[facility] [place] [address] [address] [place] [address] CONSULTATION Name: ESME DE Room #: 455-P [facility] IN M.R.#: [id number] Admission: 12/03/19 Attend Phys: Esteban Kerns MD Discharge: 12/16/19 Date of : 83 Report #: [id number] THIS REPORT FOR: cc: SHELLY Reed family physician/PCP SHELLY - Brianna family physician/PCP Monse Montez MD ~ CC: Esteban BRAVO physician/PCP DATE OF SERVICE: 12/03/2019 REASON FOR CONSULTATION: Right foot necrosis. HISTORY OF PRESENT ILLNESS: The patient is a 34-year-old paraplegic male who was admitted for sepsis secondary to decubitus ulcer. He reports he most recently on 11/16/2019 underwent right first and second toe amputations. He reports was doing well. He also, approximately 2 years ago, underwent a left below-knee amputation. He reports the wounds were doing fairly well. He noted he was outside all day on Saturday, the day of the parade, and then noticed some discoloration of the wounds with some drainage from the stump wound. He reports noting blistering as well. PAST MEDICAL HISTORY: Significant for paraplegic, hypokalemia, decubitus ulcer, history of polysubstance abuse. PAST SURGICAL HISTORY: Status post left below-knee amputation and status post right first and second toe amputation. ALLERGIES: SHRIMP, HYDROMORPHONE. SOCIAL HISTORY: Current every day smoker, uses marijuana. Reports he is independent, drinks alcohol weekly. REVIEW OF SYSTEMS: INTEGUMENTARY: Reports decubitus ulcer. MUSCULOSKELETAL: Denies other issues. LABORATORY STUDIES: Done on 12/02/2019 show white blood cell count 28.7, hemoglobin 11.5, hematocrit 36.6, platelet count 676. Chemistry shows a low sodium of 134. PHYSICAL EXAMINATION: GENERAL: He is alert and oriented, interacts appropriately. He is well-developed, well-nourished male who interacts appropriately. He is extremely friendly. VITAL SIGNS: Most recent vital signs show temperature of 36.[address] [facility] [address] [place] [address] CONSULTATION Name: ESME DE Room #: 455-P [facility] IN M.R.#: [id number] Admission: 12/03/19 Attend Phys: Esteban Kerns MD Discharge: 12/16/19 Date of : 83 Report #: [id number] centigrade, heart rate is 90, respiratory rate 18, blood pressure 142/95, pulse oximetry is 100% on room air. EXTREMITIES: Examination of his right lower extremity shows a prior surgical wound with some dark discoloration along the dorsum of the foot as well as the suture line. There is some blistering. This appears to be more consistent with an early frostbite injury. There is no drainage from the foot. Left stump wound shows a dark discoloration at the tip with some serous drainage. This may potentially be consistent with frostbite injury. RADIOGRAPHS: AP, lateral and oblique of the right foot show postoperative changes. No new osteolysis. IMPRESSION AND PLAN: 1. Postoperative right toe amputations. He may have a mild cellulitis. This may also be a frostbite type injury due to him being outside all day on Saturday in the extreme cold. We will see how he does on the antibiotics and wound care as well as Infectious Disease. 2. Status post left below-knee amputation with some drainage. Also, we will await and see how he does with antibiotics and wound care. Thank you very much for allowing me to participate in care of this patient. I will continue to follow this patient. <ELECTRONICALLY SIGNED> By: Monse Montez MD 12/24/19 1429 [id number] Monse Montez MD /nt
== END 2019-12-16 12:23 | disposition home or self-care (01) | DRG 853 ==
LOC: ER 20:45 → 4W 12-03 00:03 → EROBS 12-03 00:03 → 4W 12-03 01:18
PROVIDERS: Emergency Medicine; Internal Medicine; Nurse Practitioner; Specialist; ADMIT Hospitalist
PROC: 0J9L0ZZ Drainage of Right Upper Leg Subcutaneous Tissue and Fascia, Open Approach (ICD-10-PCS; principal; 2019-12-04)
PROC: 0JBP0ZZ Excision of Left Lower Leg Subcutaneous Tissue and Fascia, Open Approach (ICD-10-PCS; 2019-12-10)
DX: A41.9 Sepsis, unspecified organism (principal); L89.224 Pressure ulcer of left hip, stage 4; L89.214 Pressure ulcer of right hip, stage 4; L89.154 Pressure ulcer of sacral region, stage 4; E43 Unspecified severe protein-calorie malnutrition; G82.20 Paraplegia, unspecified; M86.8X8 Other osteomyelitis, other site; I96 Gangrene, not elsewhere classified; F17.210 Nicotine dependence, cigarettes, uncomplicated; F12.90 Cannabis use, unspecified, uncomplicated; T87.54 Necrosis of amputation stump, left lower extremity; Y83.8 Other surgical procedures as the cause of abnormal reaction of the patient, or of later complication, without mention of misadventure at the time of the procedure; L30.9 Dermatitis, unspecified; D64.9 Anemia, unspecified; Z89.512 Acquired absence of left leg below knee; Z88.8 Allergy status to other drugs, medicaments and biological substances; Z88.6 Allergy status to analgesic agent; Z91.013 Allergy to seafood; Z71.51 Drug abuse counseling and surveillance of drug abuser; Z91.19 Patient's noncompliance with other medical treatment and regimen; X31.XXXA Exposure to excessive natural cold, initial encounter; Y93.89 Activity, other specified; Y92.89 Other specified places as the place of occurrence of the external cause; Y99.8 Other external cause status
CPT/HCPCS: 10040; 10045

== ENCOUNTER 2020-03-16 17:49 | Inpatient (IN) | payer OTHER ==
[~2020-03-16] VITALS: Ht 180.3 cm; Wt 67.8 kg
--- NOTE | ~2020-03-16 | HC ---
[facility] [place] [address] [address] [place] [address] CONSULTATION Name: ESME DE Room #: 434-P ADM IN .R.#: [id number] Admission: 03/16/20 Attend Phys: Neal Carlson MD Discharge: Date of : 83 Report #: [id number] THIS REPORT FOR: cc: SHELLY - Brianna family physician/PCP SHELLY - Brianna family physician/PCP Monse Montez MD ~ CC: [facility] physician/PCP Neal Carlson DATE OF SERVICE: 03/18/2020 ORTHOPEDIC CONSULTATION NOTE CHIEF COMPLAINT AND REASON FOR CONSULTATION: Left below-knee amputation stump necrosis and right possible osteomyelitis, foot. HISTORY OF PRESENT ILLNESS: The patient reports his right foot has never healed and it scabbed over, the same thing with his left stump wound. He had prior right first and second phalanx and partial metatarsal amputations. He complains of significant pain in both of his lower extremities. He has been seen by Wound Care for these as well as ischial and hip decubitus ulcers. PAST MEDICAL HISTORY: Significant for past drug abuse, osteomyelitis, paraplegia, sacral wounds. ALLERGIES: DILAUDID. SOCIAL HISTORY: Smokes about half a pack of cigarettes a day, does not work. Alcohol use is unknown. PAST SURGICAL HISTORY: Prior right first and second toe amputations and left below-knee amputation. LABORATORY STUDIES: Done on 03/17/2020 show white blood cell count 14.5, hemoglobin 9.5, hematocrit 30.6, platelet count 637. ESR was 0. Chemistry is grossly normal except for CRP is elevated at 49.8. Calcium is low at 7.5. PHYSICAL EXAMINATION: GENERAL: The patient is alert and oriented, interacts appropriately. He is well-developed, well-nourished male in no acute distress. He is pleasant with me. Normal mood and affect. He mobilizes himself with a wheelchair. EXTREMITIES: Examination of his bilateral lower extremities, the patient strongly requested that I not remove the dressings and for me to look at the pictures, which I agreed to at this point, although prior to any surgical planning, the dressings would need to be removed. He does have gauze dressings on the left below-knee amputation stump and the right foot. On the right foot, [address] [address] CONSULTATION Name: ESME DE Room #: 434-P ADM IN M.R.#: [id number] Admission: 03/16/20 Attend Phys: Neal Carlson MD Discharge: Date of : 83 Report #: [id number] there is approximately a 2 cm healing wound on the medial aspect of his distal leg. There is no cellulitis. Photos showed multiple eschars on the right foot and left stump wound. The rest of the medical record was reviewed by myself. RADIOGRAPHS: Three views, AP, lateral and oblique of the right foot were reviewed and interpreted by myself as well as the report was reviewed, shows some cortical irregularity on the first and second metatarsals, maybe consistent with osteomyelitis. IMPRESSION AND PLAN: 1. Status post right first and second toe amputations with poor healing wounds and probable osteomyelitis. Would recommend an MRI to be completed today. My on-call partner will see him this weekend. He may require further amputation, would also appreciate Wound Care's input. 2. Left below-knee amputation stump eschar. Again, we will follow this as well. This may require revision. Questions were encouraged and answered to the best of my ability. By: [id number] Monse Montez MD /nt
[~2020-03-16 17:49] MED LIST changes: +AUGMENTIN 875-1 EACH PO; +LORAZEPAM 1 MG T1 MG PO; +NORCO 10-325 T1 EACH PO
[2020-03-16 17:50] VITALS: BP 139/78
--- NOTE | 2020-03-16 18:28 | NUR ---
IV TEAM PAGED FOR LINE AND LAB
[2020-03-16 19:32] LABS: ABSOLUTE NEUTROPHILS 11.4 thou/uL (1.4-8.2); BASOPHILS 0.5 % (0.0-2.0); EOSINOPHILS 1.9 % (0.0-3.0); HEMATOCRIT 32.1 % (42.0-52.0); HEMOGLOBIN 10.2 gm/dL (14.0-18.0); LYMPHOCYTES 12.6 % (24.0-44.0); MCH 24.5 pg (26.0-34.0); MCHC 31.9 g/dL (28.0-37.0); MCV 76.7 fL (80.0-100.0); MONOCYTES 6.1 % (1.0-8.0); PLATELET COUNT 684 thou/uL (150-400); POLYS 78.9 % (36.0-66.0); RBC 4.18 mil/uL (4.50-6.00); WBC 14.5 thou/uL (4.0-11.0)
[2020-03-16 19:36] LABS: CREATININE 1.1 mg/dL (0.7-1.3); POTASSIUM 3.8 mmol/L (3.5-5.1)
[2020-03-16 19:42] LABS: ALBUMIN 1.4 g/dL (3.4-5.0); TOTAL BILIRUBIN 0.1 mg/dL (<0.1-1.0); TOTAL PROTEIN 6.4 g/dL (6.4-8.2)
[2020-03-16 20:15] VITALS: BP 116/55
[2020-03-16 20:38] VITALS: BP 115/58
[2020-03-16 20:50] VITALS: BP 122/61
[2020-03-17 03:00] VITALS: BP 135/70
--- NOTE | 2020-03-17 05:38 | NUR ---
PT WAS ADMITTED TO THE UNIT FROM THE ER IN A STABLE CONDITION.PT C/O PAIN ON HIS BACK AND R SIDE,MANAGED WITH MED.ADMISSION HX,EDUCATION AND ASSESSMENT COMPLETED.PT HAS MULTIPLE WOUNDS TO HIS R FOOT AND SACRUM,PT REFUSED PIC TAKEN,PT STATED THAT HE DOESN'T WANT ANYONE TOUCHING HIS WOUNDS UNTIL HIS PAIN IS UNDER CONTROL.PT IS A PARAPLEGIA,BUT ABLE TO CARE FOR SELF.PT WAS ANGRY,IRRITABLE AND NOT COOPERATIVE WITH CARE ON ADMIT.IVF AND IV ABX ADMINISTERED ORDERED.CALL LIGHT WITHIN REACH.
[2020-03-17 07:59] LABS: HEMATOCRIT 30.6 % (42.0-52.0); HEMOGLOBIN 9.5 gm/dL (14.0-18.0); MCH 24.1 pg (26.0-34.0); MCHC 31.2 g/dL (28.0-37.0); MCV 77.3 fL (80.0-100.0); RBC 3.96 mil/uL (4.50-6.00); RDW 17.4 % (10.5-14.5); WBC 14.5 thou/uL (4.0-11.0)
[2020-03-17 08:10] LABS: CALCIUM 7.5 mg/dL (8.5-10.1); CREATININE 1.1 mg/dL (0.7-1.3); POTASSIUM 4.3 mmol/L (3.5-5.1)
[2020-03-17 08:13] VITALS: BP 127/91
--- NOTE | 2020-03-17 10:12 | NUR ---
chart review. tried calling pt in room, and no answer. cm spoke with bedside nurse, is going to make sure phone is in reach for pt to talk.
--- NOTE | 2020-03-17 14:58 | NUR ---
PT A&OX4. VERY AGGITATED. STATES PAIN AT 10/10 TO BACK AND R LE. REFUSED WOUND PICTURE AND DRSG TO THIS TIME STATES HE JUST WANTS A LITTLE MORE TIME FOR THE MEDS TO KICK IN. PT IS A PARPLEGIC THOUGH ABLE TO GET IN AND OUT OF HIS W/C AND BATH HIMSELF. CALL LIGHT IS W/I REACH.
[2020-03-17 20:00] VITALS: BP 129/82
--- NOTE | 2020-03-18 02:44 | NUR ---
ASSUMED PT CARE AT 1900. PT IS VERY IRRITABLE. THIS RN SPOKE TO DR TRAN WHOM SAID TO MAKE THE PT NPO AT MIDNIGHT, PT WAS UPSET THAT NO ONE HAD COME TO SEE HIM. LEFT STUMP AND RIGHT FOOT DRESSING D/C/I. NO DRESSINGS ON THE SACRAL AND HIP WOUNDS DUE TO PT REFUSING. CALLS [facility] FOR PAIN MEDICATION. SAYS HE IS INDEPENDENT AND CAN GO TO THE BATHROOM W/O ASSISTANCE. VSS. ANTIBIOTICS AND FLUIDS INFUSING PER ORDER. PT TURNS SELF, IS CURRENTLY RESTING IN BED WATCHING TELEVISION.
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
[2020-03-18 08:02] VITALS: BP 136/89
--- NOTE | 2020-03-18 12:14 | NUR ---
ON-GOING ASSESSMENT: CM REVIEWED CHART. PT IS TO HAVE AN MRI. WOUND CARE AND ORTHO ARE FOLLOWING PATIENT. PER WOUND CARE FOR R FOOT PENDING THE MRI RESULTS THEY WOULD RECOMMEND TMA VS BKA AND FOR LEFT STUMP THEY RECOMMEND STUMP REVISION. ORTHO IS FOLLOWING PATIENT AND AWAITING RESULTS OF THE MRI. PT IS SOMEWHAT AGITATED DUE TO NOT BEING ABLE TO SLEEP. PT IS FROM HOME WHERE HE LIVES WITH HIS MOTHER. CM WILL CONTINUE TO FOLLOW TO ASSIST NEEDED. NO PLANS FOR WEEKEND DISCHARGE.
[2020-03-18 16:12] VITALS: BP 136/86
--- NOTE | 2020-03-18 17:09 | NUR ---
PT A&OX4. AGITATED WITH CARES. C/O PAIN WHEN HE WENT FOR MRI TODAY. DEMANDED A ONE TIME PAIN MED, PAIN MED WAS SWITCHED FROM MORPHINE TO FENTYNL THIS MADE PT VERY AGITATED. REFUSED DRSG CHANGES. IV FLUIDS INFUSING W/O COMPS.TRANSFERS SELF TO W/C AND TO BATHROOM, PT IS A PARA. CALL LIGHT W/I REACH.
[2020-03-18 19:39] VITALS: BP 145/89
--- NOTE | 2020-03-19 03:25 | NUR ---
RECIEVED CARE OF THIS PATIENT AT 1900. PATIENT ALERT AND ORIENTED X4. C/O PAIN [id number]. MED GIVEN WITH SOME RELIEF. PATIENT IS A PARA WITH MULTIPLE WOUNDS. HAS A LBKA. PATIENT CAN BE SHORT WITH THE NURSES AND THEN BE NICE CAN BE. IV PATENT IN RAC WITH IV FLUIDS INFUSING. SLEPT OFF AND ON DURING NIGHT.
[2020-03-19 07:10] VITALS: BP 123/87
[2020-03-19 15:25] VITALS: BP 124/87
[2020-03-19 18:56] VITALS: BP 121/71
--- NOTE | 2020-03-19 23:38 | NUR ---
ASSESSED AT START OF SHIFT PT RESTING IN BED. REPORT RECIEVED FROM DAY NURSE. WOUND DRESSING INTACT. COVID RESULT NEGATIVE. DR PIÑA AWARE. ORDERS PLACED TO BE NPO AT MIDNIGHT AND TO HAVE SURGERY @0830 IN THE AM. INFORMED PT ABOUT PLANS. PT CALLS FREQ FOR PAIN MEDS DUE TO PAIN ON THE RIGHT SIDE. MANAGED WITH FENTANYL AND HYDROCODONE. PT PARAPLEGIC AND W/C BY BEDSIDE. CALL LIGHT IN REACH AND WILL CONT WITH POC TILL EOS.
[2020-03-20 07:03] LABS: HEMATOCRIT 28.6 % (42.0-52.0); HEMOGLOBIN 9.1 gm/dL (14.0-18.0); MCH 24.2 pg (26.0-34.0); MCHC 31.8 g/dL (28.0-37.0); MCV 76.3 fL (80.0-100.0); RBC 3.75 mil/uL (4.50-6.00); RDW 16.8 % (10.5-14.5); WBC 11.4 thou/uL (4.0-11.0)
[2020-03-20 07:15] LABS: CALCIUM 8.1 mg/dL (8.5-10.1); POTASSIUM 4.2 mmol/L (3.5-5.1)
[2020-03-20 08:20] VITALS: BP 140/90
[2020-03-20 12:33] VITALS: BP 124/78
--- NOTE | 2020-03-20 16:08 | NUR ---
Assumed care of pt at 0700. Pt a&ox4. Pt had surgical procedure done today. Pt's family called with patient permission, and updated after procedure. Dressing c/d/i. Rt heel floated over pillow. Prn pain meds administered for pain. Call light within reach. Will continue to monitor.
[2020-03-20 20:59] VITALS: BP 127/89
--- NOTE | 2020-03-20 22:11 | NUR ---
PT AOX4. PT REPORTS PAIN 8/10 IN LLE. LLE NOTED TO HAVE 2+ PITTING EDEMA. PT RECEIVING PRN IV FENTANYL Q3HR AND PRN PO NORCO Q4HR. PT REPORTS CONCERN WITH PAIN MANAGEMENT AND SLEEPING. PROVIDED REASSURANCE THAT ALL STAFF ARE HERE TO SUPPORT ACHIEVING [employer] STATUS, PT RECEPTIVE. PT OBSERVED TO HAVE DECREASED IRRITABILITY AND AGITATION WITH THERAPEUTIC COMMUNICATION. PT INDEPENDENT WITH TRANSFERS FROM BED TO WC AND WC TO BED. PT INDEPENDENT WITH FREQUENT REPOSITIONING. PT TOLERATING PO INTAKE OF FLUIDS AND REGULAR DIET. PT ENCOURAGED TO NOTIFY STAFF FOR ALL NEEDS. CALL LIGHT WITHIN REACH, BED IN LOWEST POSITION, BED LOCKED, WC AT BEDSIDE. WILL CONTINUE TO MONITOR.
--- NOTE | 2020-03-21 03:57 | NUR ---
PT LYING IN BED. FENTANYL AND LORTAB PROVIDING PAIN RELIEF. RESTING COMFORTABLY. NO NEEDS VOICED. CALL LIGHT WITHIN REACH. FREQUENT OBSERVATION.
[2020-03-21 05:34] VITALS: BP 124/85
[2020-03-21 08:00] VITALS: BP 121/70
--- NOTE | 2020-03-21 08:42 | O ---
[address] [address] OPERATIVE REPORT Name: ESME DE Room #: 434-P ADM IN M.R.#: [id number] Admission: 03/16/20 Attend Phys: Neal Carlson MD Discharge: Date of : 83 Report #: [id number] THIS REPORT FOR: cc: FAM - No family physician/PCP FAM - No family physician/PCP Dale Julian MD ~ CC: [facility] physician/PCP Neal Carlson DATE OF SERVICE: 03/20/2020 SERVICE: Orthopedics. FACILITY: [facility]. SURGEON: Dale Julian MD SOFTWARE RECRUITER: Ileana Mak NP PREOPERATIVE DIAGNOSES: 1. Paraplegia. 2. Decubitus ulcers. 3. Status post left below-knee amputation. 4. Status post right first and second toe amputations. 5. Osteomyelitis, right forefoot. 6. Nonhealing wound with eschar, left leg. POSTOPERATIVE DIAGNOSES: 1. Paraplegia. 2. Decubitus ulcers. 3. Status post left below-knee amputation. 4. Status post right first and second toe amputations. 5. Osteomyelitis, right forefoot. 6. Nonhealing wound with eschar, left leg. PROCEDURES: 1. Right transmetatarsal foot amputation. 2. Irrigation and debridement, left leg wound, skin and subcutaneous tissue (6 x 7 cm). COMPLICATIONS: None. DRAINS: None. SPECIMENS: Foot for pathology. [address] [address] OPERATIVE REPORT Name: ESME DE Room #: 434-P [facility] IN .R.#: [id number] Admission: 03/16/20 Attend Phys: Neal Carlson MD Discharge: Date of : 83 Report #: [id number] FINDINGS: 1. Healthy granulation tissue with good vascularity of the wound bed on the right foot. 2. Superficial eschar down to the subcutaneous tissue on the left leg was debrided. There was no exposed bone, no evidence of deep infection. HISTORY: The patient is a gentleman who is a paraplegic and has had chronic leg wounds subsequent to that, he had had first and second toe amputations a couple of months ago. There was some difficulty with wound care, compliance and followup. He then presented to the Emergency Room with purulence draining from his toes and a significant wound on the foot and evidence on MRI of osteomyelitis. We had discussion about treatment options. Risks, benefits, alternatives and indications of surgery were discussed with him in detail. Risks include but not limited to pain, bleeding, infection, injury to nerves or blood vessels, incomplete healing, need for further surgery including revision up to and including higher level amputation as well as complications related to anesthesia such as stroke, heart attack, pulmonary complications, thromboembolic disease and . Despite the risks, he gave full informed consent and wished to proceed. PROCEDURE IN DETAIL: Bilateral lower extremities were identified, the surgical extremities. He was then taken to the operating room and general anesthesia was induced without complications, padded appropriately. Prophylactic antibiotics were not administered as he is on antibiotic regimen on the floor. He had tourniquet applied to bilateral lower extremities, though we did not use the tourniquet on the left side. The right side tourniquet time was 25 minutes. Bilateral lower extremities were prepped and draped in standard sterile fashion. Time-out procedure was performed. The leg was elevated and then right leg tourniquet was inflated to 250 mmHg. It was later bumped up to 300 mmHg and the total tourniquet time was 25 minutes. The right foot was actually very unhealthy in appearance, but with him asleep, we were able to peel back an eschar on the dorsum of the forefoot extending to the mid foot, which revealed really overall healthy granulation tissue across the mid foot and so I felt good about the ability to save much of the foot with the transmetatarsal amputation and this was the only thing he was interested in undergoing. He had specifically refused any higher level amputation and understood the risk of insufficient healing; however, the infection was clearly contained to the level of the toes and the distal metatarsals and so proceeded with a fishmouth incision while preserving the dorsal foot granulation tissue and specifically avoiding bringing the incision too far proximal. Dissection was taken down to the metatarsals. These were exposed with subperiosteal dissection and then they were each truncated with the bone cutter and then the sharp edges were debrided with the rongeur. A cascade pattern was created in order to avoid any deep pressure on the soft tissues underneath. We preserved the plantar skin flap, which was bleeding well and well vascularized in order to close the wound and [address] [address] OPERATIVE REPORT Name: ESME DE Room #: 434-P ADM IN M.R.#: [id number] Admission: 03/16/20 Attend Phys: Neal Carlson MD Discharge: Date of : 83 Report #: [id number] then thoroughly irrigated it. Hemostasis was achieved when the tourniquet was let down and then 2 vessels were tied off with 0 silk ties and then the deep layer was closed with 0 PDS suture in avxalr-qu-dicid fashion. The superficial layer was closed with 2-0 PDS sutures, which provided good skin approximation and then the skin was closed with 3-0 nylon with primarily diagonal mattress sutures and then some single interrupted stitches as well to reinforce. At this point, Xeroform and gauze dressing was applied followed by compression wrap with Brenden. The left leg was then carefully evaluated. The eschar on the end of the leg measured 6 x 7 cm and was thick and black in appearance. This was debrided sharply with a knife and scissors exposing the underlying tissue which was granulation tissue with fibrinous exudate over the top. I then used a Pierson elevator to scrape away the fibrinous exudate and fresh bleeding was encountered throughout the whole thing. There was no deep sinus tract and there was no palpable or exposed bone, so this is a very healthy appearing wound bed now. It was irrigated and then Xeroform dressing followed by gauze and a compressive Brenden wrap dressing was applied to the left leg. The patient was then awakened from anesthesia and taken to recovery room in stable condition. There were no complications. All counts were correct. <ELECTRONICALLY SIGNED> By: Dale Julian MD 03/21/20 0842 1215 [id number] Dale Julian MD /nt
--- NOTE | 2020-03-21 18:00 | NUR ---
VERY PLEASANT AND COOPERATIVE. LEFT STUMP DRESSING INTACT AND RIGHT FOOT DRESSING INTACT. GOOD APPETITE FOR MEALS. INDEPENDEN WITH TOILETING AND SELF CARES. PATIETN CHANGED SACRAL DRESSING HIMSELF. LEFT UPPER ARM SALINE LOCK INTACT.
[2020-03-21 19:15] VITALS: BP 123/87
--- NOTE | 2020-03-22 05:09 | NUR ---
RECEIVED CARE OF THIS PATIENT AT 1900. PATIENT ALERT AND ORIENTED X4. C/O PAIN, MED GIVEN WITH SOME RELIEF. UP IN W/C BY SELF TO BATHROOM. KRAIG WRAPS ON OLIVIER LOWER EXTS. SLEPT OFF AND ON DURING NIGHT.
[2020-03-22 08:19] VITALS: BP 129/75
[2020-03-22 17:22] VITALS: BP 136/83
--- NOTE | 2020-03-22 18:37 | NUR ---
VSS-LOW GRADE TEMP OF 99.3. PAIN WELL CONTROLLED WITH IV AND PO PAIN MEDICATIONS. CHANGED BOTH STUMP DRESSINGS PER ORDERS, VERY LITTLE SEROUS DRAINAGE ON REMOVED DRESSINGS. PATIENT CHANGED ISCHIAL AND COCCYX WOUND. OOB TO WHEELCHAIR BY SELF, PARTIAL BATH INDEPENDENTLY, LINEN CHANGE. CALLS APPROPRIATELY FOR ANY NEEDED ASSISTANCE.
[2020-03-22 19:25] VITALS: BP 128/92
--- NOTE | 2020-03-23 02:56 | NUR ---
ASSESSED AT START OF SHIFT PT RESTING IN BED. C/O PAIN MANAGED WITH IV AND PO MEDS. IV INTACT AND ABX INFUISING. WOUND DRESSING IN PLACE. CALL LIGHT IN REACH AND PT TRANSFERS SELF VIA WHEELCHAIR. WILL CONT TO MONITOR.
[2020-03-23 04:18] VITALS: BP 136/89
[2020-03-23 05:55] LABS: HEMATOCRIT 31.6 % (42.0-52.0); HEMOGLOBIN 9.8 gm/dL (14.0-18.0); MCH 24.2 pg (26.0-34.0); MCHC 30.9 g/dL (28.0-37.0); MCV 78.2 fL (80.0-100.0); RBC 4.04 mil/uL (4.50-6.00); RDW 17.3 % (10.5-14.5); WBC 12.2 thou/uL (4.0-11.0)
[2020-03-23 06:02] LABS: CALCIUM 8.3 mg/dL (8.5-10.1); CREATININE 1.1 mg/dL (0.7-1.3); POTASSIUM 4.3 mmol/L (3.5-5.1)
[2020-03-23 08:35] VITALS: BP 120/83
--- NOTE | 2020-03-23 11:49 | NUR ---
PT UNDERWENT PARTIAL FOOT AMUTATION AND IS ON IV ABX AT THIS TIME. CASE TEAM INDICATING THAT PT IS PROGRESSING. POSSIBLE DC TODAY.
--- NOTE | 2020-03-23 14:58 | NUR ---
FAXED REFERRAL TO [facility] SPOKE WITH TRISTAN IN ADM HE RECEIVED REFERRAL AND WILL REVIEW.
--- NOTE | 2020-03-23 15:03 | NUR ---
CM FOLLOWED UP WITH PT THIS DAY CARE TEAM INDICATED HE WAS MEDICALLY STABLE TO DC HOME WITH OP FOLLOW UP IN THE WOUND CLINIC. THEN IT WAS DETERININD THAT PT NEEDS IV ZOSYN FOR A PROLONGED PERIOD OF TIME AND CAN'T DC ON IV ABX. PT WAS PUT OFF UNDERSTANDABLY. HE WAS RECEPTIVE TO REFERRALS BEING SENT WHEREVER HE NEEDS TOGO TO GET SERVIES BUT FEARS COVID IN OUTSIDE FACILITY. REFERRALS SENT TO [facility] FOR REVIEW. ASKED FOR 5N CONSULT. CM TO FOLLOW INDICATED WITH DC PLANNING.
[2020-03-23 15:41] VITALS: BP 118/81
--- NOTE | 2020-03-23 19:58 | NUR ---
VSS-AFEBRILE. CONTINUES TO REQUIRE IV AND PO PAIN MEDICATIONS FREQUENTLY. REMAINS IRRITABLE, BUT COOPERATIVE. ALL WOUND DRESSINGA COMPLETED BY WOUND CARE TEAM THIS SHIFT. GOOD APPETITE, NO REPORTED NAUSEA/VOMITING. CALLS APPROPRIATELY WHEN NEEDING ANY ASSISTANCE.
[2020-03-23 22:05] VITALS: BP 137/89
--- NOTE | 2020-03-24 00:07 | NUR ---
PT AOX4. PT REPORTS PAIN IN LLE. PT RECEIVING PRN PO OXYCODONE Q4HR AND PRN IV FENTANYL Q3HR. PT IV SITE DISCONTINUED ON PREVIOUS SHIFT, NEW IV ACCESS OBTAINED ON LEFT HAND, NOTED HARD TO FLUSH, ANTIBIOTICS RESUMED AT NEW SITE. PHARMACY NOTIFIED FOR RETIME OF ANTIBIOTICS. PT TOLERATING PO INTAKE OF FLUIDS AND REGULAR DIET. PT TRANSFERS INDEPENDENTLY FROM BED TO WC. PT USING URINAL AND BATHROOM. PT ENCOURAGED TO NOTIFY STAFF FOR ALL NEEDS. CALL LIGHT WITHIN REACH, BED IN LOWEST POSITION, BED LOCKED, WC AT BEDSIDE. WILL CONTINUE TO MONITOR.
[2020-03-24 09:00] VITALS: BP 126/93
--- NOTE | 2020-03-24 09:48 | NUR ---
griffin siddiqui with [facility] reached out to cm team today, still trying to get overturned to be able to accept monika for iv ABX and wound care. if [facility] its it over turned, they will need auth from medicaid.
--- NOTE | 2020-03-24 09:49 | NUR ---
Pt REFUSED FORMAL O.T. ASSESSMENT. Pt STATED HE WAS NOT MOVING FROM POSITION OF BEING SUPINE IN BED. UPON QUESTIONNING OF ABILITIES WITH ADL AND IADL, Pt STATED HE IS INDEPENDENT WITH ALL TASKS AND DOES NOT ANTICIPATE PROBLEMS RETURNING TO HIS DAILY ACTIVITIES AT HOME. Pt STATED HE WAS INTERESTED IN WHEELCHAIR [employer]ORTS. DIRECTED Pt [facility] CAN DIRECT HIM WITH PARTICIPATING IN THIS LEISURE PURSUIT.
--- NOTE | 2020-03-24 10:42 | NUR ---
ORDERS RECIEVED FOR EVAL AND TREAT. Pt SAYS HE IS MOVING LIKE HE NORMALLY DOES AND DOESN'T NEED P.T. FOR MOBILITY ASSESSMENT. Pt WELL KNOWN TO THERAPY AND IT IS MOST LIKELY TRUE THAT HE DOES NOT NEED A FORMAL EVAL. Pt IS DECLINING A FORMAL EVAL AT THIS TIME
--- NOTE | 2020-03-24 13:28 | NUR ---
ATTEMPTED FORMAL O.T. EVALUATION SECOND TIME EXPLAINING TO Pt THE NEED TO COMPLY WITH ASSESSMENT TASKS PART OF DETERMINATION OF ELIBILITY OF ADMISSION TO 5, ACUTE REHAB. Pt REFUSED STATING HE HAS ALREADY BATHED AND DRESSED HIMSELF THIS MORNING HE HAS BEEN EVERY MORNING ON ACUTE CARE. Pt ALSO STATED THAT BEING INDEPENDENT WOULD NOT QUALIFY HIM FOR REHAB ANYWAY.
--- NOTE | 2020-03-24 15:23 | NUR ---
PT CARE ASSUMED AT 0700. A&Ox4. PT VERY UPSET AT RN WHEN GIVEN PAIN MEDICATION PER PAIN SCALE, HE WANTED HIS FENTANYL NOT THE HYDROCODONE. WHEN EXPLAINING THAT I COULD NOT GIVE IT TO HIM HE STARTED YELLING AND WOULD NOT LET ME EXPLAIN. DR. FLORES WAS INFORMED OF THIS. PT HAD A FENTANYL PATCH ADDED FOR BETTER PAIN CONTROL. AFTER SPEAKING TO CASE MANAGMENT ABOUT PLACEMENT I SPOKE TO THE PATIENT AGAIN AND HE INSISTED THAT HE WOULD ONLY RECEIVE HIS CARE HERE AND THE ONLY WAY HE WOULD LEAVE IS IF SECURITY "DRAGGES" HIM OUT. HE REFUSES TO TRANSFER TO ANOTHER FACILITY IN FEAR OF SENTHIL COVID-19. PT REFUSED OT EVAL, REHAB EVALUATION AND ONLY LET PT DO A VERY QUICK EVAL. PT REFUSED HIS IV ANTIBIOTIC TREATMENT AND FENTANYL PATCH. DR. FLORES DC'D ALL PAIN MEDICATION DUE TO PT REFUSING ALL TREATMENT. WILL CONTINUE TO MONITOR.
[2020-03-24 16:50] VITALS: BP 138/101
--- NOTE | 2020-03-24 19:57 | NUR ---
PATIENT IRRITABLE AND RESTLESS TODAY. FRUSTRATED AT IDEA OF POSSIBLE HAVING TO GO TO A FACILITY TO FINISH ANTIBIOTIC THERAPY. DEMANDED TO SPEAK WITH PHYSICIAN ABOUT ALL OPTIONS FOR TREATMENT. DR FLORES SPOKE WITH PATIENT VIA TELEPHONE, AND PATIENT AGREED TO CONTINUE ANTIBIOTICS AND PAIN MEDICATION REGIME FOR TODAY, PLAN OF CARE GOING FORWARD WILL BE ADDRESSED TOMORROW.
[2020-03-24 23:00] VITALS: BP 132/97
--- NOTE | 2020-03-25 04:10 | NUR ---
ASSUMED PT CARE AT 1900. PT WAS PLEASANT THIS EVENING. CALLS FREQ FOR PAIN MEDICATION. ANTIBIOTICS INFUSING PER ORDER. SLEPT WELL OVERNIGHT. SAID THAT THE FENTANYL PATCH REALLY HELPS. WILL CONTINUE TO MONITOR.
--- NOTE | 2020-03-25 09:50 | NUR ---
PATIENT GIVEN PRN IV PAIN MED AND HE TOOK AM MEDS EXCEPT SENNA STATES HAD BM DOES NOT NEED. PT IS PLEASANT AND COOPERATIVE WITH CARE NO INAPPROPRATE BEHAVIOR. DOVTOR HERE TO SEE HIM DCD FENTANYL IV PRN FOR PAIN HAS NEW PO PAIN MED. PT'S WEIGHT = 149.6 LBS
[2020-03-25 12:03] VITALS: BP 125/77
[2020-03-25 15:00] VITALS: BP 121/82
--- NOTE | 2020-03-25 15:00 | NUR ---
PATIENT RETURNED TO ROOM FROM POST OP V.S 99.4 17 75 132/77 O2SAT = 92%. PT RESTING QUIETLY WITH EYES CLOSED.NO PAIN NO RESP DISTRESS.
--- NOTE | 2020-03-25 16:16 | NUR ---
ON-GOING ASSESSMENT: CM REVIEWED CHART AND SPOKE WITH ATTENDING. [facility] HAS [facility] ACCEPTED PATIENT BUT HAS NOT RECEIVED AUTH AT THIS TIME. PT STATES HE IS REFUSING TO GO TO ANY FACILITY AND WANTS TO GO HOME. CM DISCUSSED IMPORTANCE OF GOING TO A FACILITY FOR HIS IV ANBX. PT CONTINUES TO REFUSE STATING HE WILL NOT GO TO A FACILITY. CM DISCUSSED POSSIBLE OPTION OF OUTPT INFUSION AND PT STATES HE WOULD COME DAILY IF HE HAD TO. GIVEN PATIENTS HX OF DRUG USE PT IS NOT ABLE TO RETURN HOME WITH A LINE IN AND WOULD HAVE TO GIVE AN IV DAILY. CM SPOKE WITH DR. KOHLI WHO STATES COMING DAILY IS NOT AN OPTION PT NEEDS IV ANBX MULTIPLE TIMES A DAY. DR. KOHLI STATING HE WILL SPEAK WITH PATIENT. CM UPDATED LIASON AT [facility]. CM WILL CONTINUE TO FOLLOW TO ASSIST NEEDED. IF PATIENT WILL BE AGREEAble [facility] WILL SEEK AUTH ON SATURDAY.
--- NOTE | 2020-03-25 17:08 | PATH ---
[facility] [address] [place] [address] PATHOLOGY RPT PROCEDURE Name: FDEE DE Room #: 434-P ADM IN M.R.#: [id number] Admission: 03/16/20 Date of : 83 Discharge: Report #: [id number] Path Case #: [id number] [facility] Accession Number: [id number] . 01 Material submitted: . foot - RIGHT MID FOOT AMPUTATION. Modifiers: right, mid . 01 Clinical history: . Osteomyelitis right foot; non-healing wound left leg . 02 Diagnosis: Foot, right mid foot, amputation: - Skin and subcutaneous tissue with gangrenous necrosis as well as marked acute inflammation extending into underlying bone showing acute osteomyelitis. - Viable bone margins identified at the first toe. - Remaining toe margins with fibrosis as well as reactive/remodeled bone. (IUV:maynor; 03/25/2020) QMS 03/25/2020 1652 Local . 02 Electronically signed: . Lyndsay Zepeda MD, Pathologist NPI- [id number] . 01 Gross description: . The specimen is received in formalin, labeled "Fede De, right mid foot amputation". Received is a right forefoot amputation with attached metatarsals measuring 8.9 x 7.1 x 3.6 cm in greatest dimensions. All five bone margins are jagged in appearance, and are inked as follows: Toe 1-black, toe 2-blue, toe 3-yellow, toe 4-red, toe 5-orange. Toes one and two have previously been amputated. Sutures are present along the epidermal surface in this area and the surrounding epidermis is light putnam, flaky to brown-black and necrotic in appearance. Toe 3 is predominantly blackened in appearance. Toe 4 is dusky rosen-brown in appearance with an overlying light putnam, flaky area. At the distal aspect on the dorsal surface of the toe 5, there is a brown-black, necrotic-appearing lesion measuring 1.7 x 1.7 cm. The specimen is submitted representatively as follows: . A1 longitudinal cross-section through first metatarsal bone margin, following decalcification A2 longitudinal cross-section through second metatarsal bone margin, following decalcification A3 horizontal cross-section through distal aspect of third toe, following decalcification A4 longitudinal cross-section through third metatarsal bone margin, following decalcification [address] [address] PATHOLOGY RPT PROCEDURE Name: FEDE DE Room #: 434-P ADM IN M.R.#: [id number] Admission: 03/16/20 Date of : 83 Discharge: Report #: [id number] Path Case #: [id number] A5 horizontal cross-section through distal aspect of fourth toe, following decalcification A6 longitudinal cross-section through fourth metatarsal bone margin, following decalcification A7 horizontal cross-section through distal aspect of fifth toe, following decalcification A8 longitudinal cross-section through fifth metatarsal bone margin, following decalcification. . Gross photographs are taken. (CAA; 03/23/2020) QA/[facility] 03/25/2020 1518 Local . 02 Pathologist provided ICD-10: M86.171, I96 . 02 CPT . 234916, [id number] Specimen Comment: A courtesy copy of this report has been sent to [phone] Specimen Comment: [phone] Specimen Comment: Report sent to / DR ROYAL Performed at: [address] [facility], [place] [id number] MD Godwin Arce MD Phone: [phone] Performed at: [address] [facility] [id number] MD Lyndsay Zepeda MD Phone: [phone]
--- NOTE | 2020-03-25 17:50 | NUR ---
DR KOHLI HERE TO SEE PATIENT EXPLAINED THAT HE NEEDED 6 WEEKS OF IV ABT THERAPY. NO PO MED WOULD DO. PT STATES DOES NOT WANT TO GO TO [facility] OR ANY FACILITY SO HE WOULD STOP ABT TREATMENT. DR KOHLI TOLD PATIENT HE WOULD GO TO NURSES STATION TO LET STAFF KNOW THAT PATIENT WANTED TO GO HOME AND THINGS COULD GET STARTED. THIS NURSE CALLED DR FLORES WHO STATED HE WOULD NOT START DISCHARGE PAPERS HE WAS HERE TO SEE PATIENT GET BETTET AND THAT NOT HAVING 6 WEEKS OF IV ABT'S WAS NOT HELPING PATIENT. PT WOULD HAVE TO LEAVE HOSPITAL AMA THIS NURSE EXPLAINED TO PATIENT WHO WAS ON PHONE WITH HIS MOTHER WHAT WAS HAPPENING AND WHAT DR FLORES HAD SAID. LATER PATIENTS MOM CALLED THIS NURSE I EXPLAINED THE IMPORTANCE OF TREATMENT SHE AGREED AND STATED SHE WOULD TALK TO TO HER SON. EXPLAINED
--- NOTE | 2020-03-25 18:44 | NUR ---
WOUND CARE DR RUANO HERE WITH HARMONY WOUND CARE NURSE DRESSINGS CHANGED. PT USUALLY CHANGES SELF.
--- NOTE | 2020-03-25 19:39 | NUR ---
SPOKE WITH PATIENTS MOM ON THE PHONE UPDATED ON PATIENT'S CONDITION.
[2020-03-25 21:58] VITALS: BP 105/69
[2020-03-26 02:30] VITALS: BP 104/68
--- NOTE | 2020-03-26 06:23 | NUR ---
PT WAS OBSERVED LYING ON HIS BED WATCHING TV IN HIS ROOM AT START OF SHIFT.PAIN MED ADMINISTERED PER PT'S REQUEST.DRSG TO HIS HIP AND LOWER EXT C/D/I.PT INDEPENDENT WITH HIS CARES.PT PLEASANT AND IN A GOOD MOOD THROUGHOUT SHIFT.PT RESTING ON HIS BED AT THIS TIME.CALL LIGHT WITHIN REACH.
--- NOTE | 2020-03-26 17:04 | NUR ---
ASSUMED PATIENT CARE AT 0700. AXO X4. PAIN ON LEFT LOWER LIMB. PAIN MEDS ADMINISTERED PER PATIENT REQUEST. PAATIENT INDEPENDENT WITH HIS CARE. REFUSED SENNA STATING HE HAD BM YESTERDAY. REFUSED WOUND DRESSING CHANGE, HE SAID IT WAS CHANGED YESTERDAY AND NO NEED FOR TODAY.
[2020-03-26 20:05] VITALS: BP 132/85
--- NOTE | 2020-03-27 00:45 | NUR ---
ASSUMED CARE OF PT AT APPROXIMATELY 1900. PT IS ALERT AND ORIENTED X4. PT COMPLAINED OF PAIN TO LEFT SIDE AND LEFT LEG. PRN OXYCODONE GIVEN. PT REFUSED SENNA MEDICATION STATING HE DIDN'T NEED IT. LAST BM WAS TODAY. PT REFUSED ALL CARE TO WOUND DRESSINGS STATING THAT ITS DONE EVERY OTHER DAY. EDUCATED PATIENT OF PHYSICIAN ORDERS THAT DRESSING CHANGES WERE TO BE DONE DAILY. PT CONTINUED TO REFUSE DRESSING CHANGES. PT WITH GOOD UPPER BODY STRENGTH IS ABLE TO TRANSFER HIMSELF TO HIS WHEELCHAIR AND TO THE BATHROOM. IS ABLE TO MAKE NEEDS KNOWN. IV ABX GIVEN ORDERED. CALL LIGHT WITHIN REACH.
[2020-03-27 15:25] VITALS: BP 125/88
--- NOTE | 2020-03-27 16:38 | NUR ---
VSS-AFEBRILE. LUNGS CLEAR-ROOM AIR. C/O RIGHT HIP AND LEG PAIN. PARTIAL RELIEF NOTED WITH SCHEDULED AND PRN PAIN MEDICATIONS. CHANGED FENTANYL PATCH, PLACED ON LEFT UPPER ARM, DISCARDED USED PATCH IN SHARPS CONTAINER. REFUSED WOUND CARE STATING HE WAS HAVING "TOO MUCH PAIN". GOOD APPETITE, CONSUMED 100% OF ALL MEALS. OOB INDEPENDENTLY TO USE RESTROOM, BM THIS AFTERNOON. TRANSFERS SELF SAFELY FROM BED TO CHAIR AND BACK. CALLS FOR ANY NEEDED ASSISTANCE.
--- NOTE | 2020-03-28 02:51 | NUR ---
PATIENT ALERT AND ORIENTED X4. UP TO W/C W/O ASSIST. MEDICATED FOR PAIN X2 AT TIME OF NOTE. COOPERATIVE WITH CARE. HOWEVER, NOT SATISFIED WITH WIRELESS WATCHER. PATIENT CAN BE FUSSY AT TIMES. DRESSING D/I. PATIENT DID NOT WANT MUCH OF AN ASSESSMENT. RESTING QUIETLY. WILL MONITOR.
[2020-03-28 06:06] LABS: HEMOGLOBIN 9.7 gm/dL (14.0-18.0); MCHC 31.2 g/dL (28.0-37.0); MCV 76.9 fL (80.0-100.0); RBC 4.03 mil/uL (4.50-6.00); RDW 17.3 % (10.5-14.5); WBC 12.9 thou/uL (4.0-11.0)
[2020-03-28 07:31] VITALS: BP 126/76
--- NOTE | 2020-03-28 07:52 | NUR ---
ASSUMED CARE OF PATIENT HE IS ALERT X4. NO PAIN OR RESP DISTRESS AT THIS TIME. AWAITING IV NURSE TO REPLACE UPPER ARM IV.
--- NOTE | 2020-03-28 13:25 | NUR ---
PATIENT SIGNED PAPER FOR AMA LEFT TO GO HOME AT 1230. TOOK BELONGINGS WAS LEAVING [place]IA [place] [facility]. IV ACSESS WAS OUT. WAS GIVEN PO PRN PAIN MED BEFORE LEAVING. PT WAS UPSET THAT DR FLORES TOLD HIM THIS AM THAT HE WOULD TALK TO DR KOHLI AND COME BACK HE NEVER DID. PATIENT SPOKE WITH DOCTOR KAMILLA SATURDAY. WHO HAD STATED THAT PO ABT WOULD NOT BE EFFECTIVE. PATIENT DECIDED TO STAY THE WEEKEND HAVE IV ABT. THIS NURSE CALLED DR FLORES AND HE STATED WAS NOT COMING TO UNIT OR WRITING ORDERS. PT W/O PAIN OR RESP DISTRESS AT DISCHARGE.
--- NOTE | 2020-03-28 14:29 | NUR ---
PT CHANGED HIS OWN DRESSINGS TODAY AND DID NOT WANT PICTURES TAKEN. DR RUANO HAS SAID THAT PT MAY CHANGE DRESSING.
== END 2020-03-28 12:46 | disposition left against medical advice (07) | DRG 463 ==
LOC: ER 17:49 → 4S 20:40 → ER 20:40 → 4S 20:48
PROVIDERS: Hospitalist; Nurse Practitioner Family; Physician Assistant; ADMIT Hospitalist
DX: T87.54 Necrosis of amputation stump, left lower extremity (principal); A41.9 Sepsis, unspecified organism; L89.224 Pressure ulcer of left hip, stage 4; L89.214 Pressure ulcer of right hip, stage 4; E43 Unspecified severe protein-calorie malnutrition; G82.22 Paraplegia, incomplete; M86.9 Osteomyelitis, unspecified; F19.10 Other psychoactive substance abuse, uncomplicated; F17.210 Nicotine dependence, cigarettes, uncomplicated; Y83.8 Other surgical procedures as the cause of abnormal reaction of the patient, or of later complication, without mention of misadventure at the time of the procedure; F32.9 Major depressive disorder, single episode, unspecified; B96.20 Unspecified Escherichia coli [E. coli] as the cause of diseases classified elsewhere; B95.2 Enterococcus as the cause of diseases classified elsewhere; F41.9 Anxiety disorder, unspecified; G89.4 Chronic pain syndrome; F19.159 Other psychoactive substance abuse with psychoactive substance-induced psychotic disorder, unspecified; B96.5 Pseudomonas (aeruginosa) (mallei) (pseudomallei) as the cause of diseases classified elsewhere; Z20.828 Contact with and (suspected) exposure to other viral communicable diseases; Z99.3 Dependence on wheelchair; Z68.20 Body mass index [BMI] 20.0-20.9, adult; Z91.14 Patient's other noncompliance with medication regimen; Z89.512 Acquired absence of left leg below knee; Z79.899 Other long term (current) drug therapy; Z88.5 Allergy status to narcotic agent; Z91.013 Allergy to seafood; Z72.89 Other problems related to lifestyle; Z89.421 Acquired absence of other right toe(s); Y92.89 Other specified places as the place of occurrence of the external cause
CPT/HCPCS: 10195; 50101; 50386; 56524; 56525; 56527; 56528; 57091; 57103; 57179; 57180; 62110; 62900; 70005